=== PATIENT | female | born 1950 | race Caucasian/White ===

== ENCOUNTER → 2017-01-23 | Outpatient (CLI) | payer MEDICARE, BC ==
[~2017-01-23] MED LIST: ACET-62 PO; AMLO5TAB4 PO; ASCO-296 PO; ASPI-558 PO; BACL20TA PO; CALC-803 PO; CYAN100T PO; GLUC1CAP64 PO; HYDR-3989 PO; PRAM0.256 PO; PYRI100T2 PO; TRIA-56 PO; VITA-286 PO
== END ==
LOC: WC.BC 08:56
DX: Z12.31 Encounter for screening mammogram for malignant neoplasm of breast (principal)
CPT/HCPCS: 77063; G0202